=== PATIENT | female | born 1970 | race Caucasian/White ===

== ENCOUNTER 2017-12-08 07:07 | Emergency (ER) | payer SELFPAY ==
[2017-12-08] MEDS ORDERED: NA CHLORIDE 0.9% 1,000 ML ONE (07:39)
[2017-12-08 07:48] LABS: Absolute Lymphocytes (CBC) 2.8 K/uL (0.7-4.9); Absolute Monocytes 1.1 K/uL (0.1-1.3); Absolute Neutrophil 11.5 K/uL (1.8-8.0); Basophils % 0.4 % (0-1.3); Hematocrit 39.7 % (36.0-45.0); Lymphocytes % 18.3 % (15.3-44.8); MCV 88.3 fL (80-100); MPV 8.2 fL (7.6-11.3); Monocytes % 6.8 % (3.3-12.3); RBC Red Blood Cell Count 4.49 M/uL (3.86-4.86)
[2017-12-08 07:50] LABS: Protime INR 1.1
[2017-12-08 08:15] LABS: ALT/SGPT 9 U/L (12-78); AST/SGOT 17 U/L (15-37); Albumin 3.6 g/dL (3.4-5.0); Alkaline Phosphatase 69 U/L (45-117); BUN Blood Urea Nitrogen 9 mg/dL (7-18); Bicarbonate 25 mmol/L (21-32); Bilirubin Direct 0.1 mg/dL (0-0.2); Bilirubin Total 0.5 mg/dL (0.2-1.0); Glucose Level 107 mg/dL (74-106); NT PRO-BNP 407 pg/mL (<125); Potassium 3.5 mmol/L (3.5-5.1); Protein, Total 7.2 g/dL (6.4-8.2); Sodium Level 141 mmol/L (136-145); Troponin (Emerg Dept Use Only) < 0.02 ng/mL (0.0-0.045)
--- NOTE | 2017-12-08 09:04 | RAD REPORT ---
EXAM DESCRIPTION: CT - Chest For Pe Angio - 12/08/2017 8:38 am CLINICAL HISTORY: Chest pain. recent surgery;Chest pain;Dyspnea COMPARISON: No comparisons TECHNIQUE: CT angiogram of the pulmonary arteries was performed with MIP. All CT scans are performed using dose optimization technique as appropriate and may include automated exposure control or mA/KV adjustment according to patient size. FINDINGS: No evidence of pulmonary thromboembolism. No acute aortic finding demonstrated. Linear subsegmental atelectasis is present in both lung bases. No focal pulmonary infiltrate seen. No significant pericardial or pleural fluid. No concerning bony finding. Air is present in both breasts compatible with recent intervention. Moderate axial hiatal hernia. IMPRESSION: No evidence of pulmonary thromboembolism. Linear subsegmental atelectasis in both lung bases. Pockets of air in both breasts compatible with recent intervention. Moderate axial hiatal hernia.
--- NOTE | 2017-12-08 09:04 | RAD REPORT ---
EXAM DESCRIPTION: RAD - Chest Single View - 12/08/2017 8:07 am CLINICAL HISTORY: DYSPNEA Chest pain. COMPARISON: No comparisons FINDINGS: Portable technique limits examination quality. The lungs are grossly clear. The heart is normal in size. No displaced fractures.Air projecting over the central chest is likely related to recent breast surgery. IMPRESSION: No acute intrathoracic process suspected.
--- NOTE | 2017-12-08 09:07 | ER ---
Nurse's Notes [facility] Name: Dottie Vidales Age: 47 yrs Sex: Female : 1970 Arrival Date: 12/08/2017 Time: 07:08 Bed 7 Private MD: Luis Alberto Powell B Diagnosis: Dehydration;Shortness of breath Presentation: 12/08 07:17 Presenting complaint: Patient states: had breast implants removed yesterday and a iw breast lift done, woke up this morning feeling very SOB, denies chest pain, also states she feels like her legs a re very cold. Transition of care: patient was not received from another setting of care. Onset of symptoms was December 08, 2017. Risk Assessment: Do you want to hurt yourself or someone else? Patient reports no desire to harm self or others. Initial Sepsis Screen: Does the patient meet any 2 criteria? No. Patient's initial sepsis screen is negative. Does the patient have a suspected source of infection? No. Patient's initial sepsis screen is negative. Care prior to arrival: None. 07:17 Method Of Arrival: Wheelchair iw 07:17 Acuity: RAHEEM 3 iw Triage Assessment: 07:40 General: Appears in no apparent distress. Respiratory: Reports shortness of breath tw2 Onset: The symptoms/episode began/occurred this morning, the patient has mild shortness of breath. 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 - Social history:: Smoking status: . - Ebola Screening: : Patient denies travel to an Ebola-affected area in the 21 days before illness onset. Screenin:19 Abuse screen: Denies threats or abuse. Nutritional screening: No deficits noted. tw2 Tuberculosis screening: No symptoms or risk factors identified. Fall Risk None identified. Assessment: 07:14 Reassessment: provider at bedside at this time. tw2 07:20 Cardiovascular: Rhythm is sinus rhythm. tw2 07:20 Respiratory: Airway is patent Respiratory effort is even, unlabored, Respiratory tw2 pattern is regular, symmetrical, Breath sounds are clear bilaterally. 07:39 Reassessment: pain from surgery yesterday. General: Appears in no apparent distress. tw2 Behavior is cooperative, appropriate for age, anxious. Pain: Complains of pain in right breast and left breast. Neuro: Level of Consciousness is awake, alert, obeys commands, Oriented to person, place, time, situation. Cardiovascular: Heart tones S1 S2 Capillary refill < 3 seconds Patient's skin is warm and dry. Respiratory: Airway is patent Respiratory effort is even, unlabored, Respiratory pattern is regular, symmetrical, Breath sounds are clear bilaterally. GI: No signs and/or symptoms were reported involving the gastrointestinal system. Abdomen is flat, Bowel sounds present X 4 quads. : No signs and/or symptoms were reported regarding the genitourinary system. EENT: No signs and/or symptoms were reported regarding the EENT system. Derm: No signs and/or symptoms reported regarding the dermatologic system. Musculoskeletal: Circulation, motion, and sensation intact. Range of motion: intact in all extremities. 08:14 Reassessment: Patient appears in no apparent distress at this time. No changes from tw2 previously documented assessment. Patient and/or family updated on plan of care and expected duration. Pain level reassessed. Patient is alert, oriented x 3, equal unlabored respirations, skin warm/dry/pink. 09:15 Reassessment: Patient appears in no apparent distress at this time. No changes from tw2 previously documented assessment. Patient and/or family updated on plan of care and expected duration. Pain level reassessed. Patient is alert, oriented x 3, equal unlabored respirations, skin warm/dry/pink. Vital Signs: 07:18 BP 116 / 74; Pulse 90; Resp 18; Temp 98.2; Pulse Ox 100% on R/A; Weight 73.94 kg; iw Height 5 ft. 6 in. (167.64 cm); 08:10 BP 119 / 74; Pulse 71; Resp 17; Pulse Ox 100% on R/A; tw2 08:13 BP 119 / 74; Pulse 71; Resp 18; Pulse Ox 100% on R/A; hj 09:15 BP 119 / 73; Pulse 85; Resp 17; Pulse Ox 99% on R/A; tw2 07:18 Body Mass Index 26.31 (73.94 kg, 167.64 cm) iw ED Course: 07:08 Patient arrived in ED. am2 07:08 Luis Alberto Powell MD is Private Physician. am2 07:13 Zhen Nobles MD is Attending Physician. kdr 07:13 awake overnight monitor on. Pulse ox on. NIBP on. tw2 07:16 Nu Muse RN is Primary Nurse. tw2 07:17 Cecil Montgomery PA is PHCP. tw2 07:18 Triage completed. iw 07:20 Placed in gown. Bed in low position. Adult w/ patient. tw2 07:20 Arm band placed on. tw2 07:30 No provider procedures requiring assistance completed. Inserted saline lock: 20 gauge tw2 in right antecubital area, using aseptic technique. Blood collected. 07:37 Zhen Nobles MD is Attending Physician. jr8 07:40 EKG done, by quality technician. reviewed by Cecil MEYERS. at1 08:05 X-ray completed. Portable x-ray completed in exam room. kw 08:06 XRAY Chest (1 view) In Process Unspecified. EDMS 08:25 CT completed. Patient tolerated procedure well. Patient moved to CT via stretcher. jg6 Patient moved back from CT. 08:38 CT Chest For PE Angio In Process Unspecified. EDMS 09:16 IV discontinued, intact, bleeding controlled, No redness/swelling at site. Pressure tw2 dressing applied. Administered Medications: 07:35 Drug: NS 0.9% 1000 ml Route: IV; Rate: 1000 ml; Site: right antecubital; tw2 08:45 Follow up: IV Status: Completed infusion; IV Intake: 1000ml tw2 Intake: 08:45 IV: 1000ml; Total: 1000ml. tw2 Outcome: 09:06 Discharge ordered by . jr8 09:15 Discharged to home via wheelchair, with significant other. tw2 09:15 Condition: stable 09:15 Discharge instructions given to patient, significant other, Instructed on discharge instructions, follow up and referral plans. Demonstrated understanding of instructions, follow-up care. 09:16 Patient left the ED. tw2 Signatures: Dispatcher [employer] EDMS Zhen Nobles MD MD kdr Elsy Busby RN RN Victorina Harris kw Cecil Montgomery PA PA jr8 Candida Gomes, sap bw bi developer EKG Tat1 Uriel Ashby RN RN hj Nu Muse RN RN tw2 Candida Arenas am2 Camelia Croft jg6 Corrections: (The following items were deleted from the chart) 07:33 07:18 BP 116 / 74; Pulse 90bpm; Resp 18bpm; Pulse Ox 100% RA; tw2 iw
--- NOTE | 2017-12-08 09:07 | EDPHYS ---
Physician Documentation [facility] Name: Dottie Vidales Age: 47 yrs Sex: Female : 1970 Arrival Date: 12/08/2017 Time: 07:08 Bed 7 Private MD: Luis Alberto Powell B ED Physician Zhen Nobles HPI: 12/08 07:37 This 47 yrs old Female presents to ER via Wheelchair with complaints of jr8 Shortness Of Breath. 07:37 The patient has shortness of breath at rest. Onset: The symptoms/episode began/occurred jr8 acutely, today. Duration: The symptoms are continuous. The patient's shortness of breath has no apparent modifying factors. Associated signs and symptoms: The patient has no apparent associated signs or symptoms. Severity of symptoms: At their worst the symptoms were moderate in the emergency department the symptoms are unchanged. The patient has not experienced similar symptoms in the past. The patient has been recently seen by a physician:. Patient had breast augmentation surgery yesterday. Had felt fine throughout the night. This morning started to feel short of breath . 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 - Social history:: Smoking status: . - Ebola Screening: : Patient denies travel to an Ebola-affected area in the 21 days before illness onset. ROS: 07:37 Eyes: Negative for injury, pain, redness, and discharge, ENT: Negative for injury, jr8 pain, and discharge, Neck: Negative for injury, pain, and swelling, Cardiovascular: Negative for chest pain, palpitations, and edema, Abdomen/GI: Negative for abdominal pain, nausea, vomiting, diarrhea, and constipation, Back: Negative for injury and pain, MS/Extremity: Negative for injury and deformity, Skin: Negative for injury, rash, and discoloration, Neuro: Negative for headache, weakness, numbness, tingling, and seizure. 07:37 Respiratory: Positive for shortness of breath, Negative for cough, dyspnea on exertion, orthopnea, sputum production. Exam: 07:37 Eyes: Pupils equal round and reactive to light, extra-ocular motions intact. Lids and jr8 lashes normal. Conjunctiva and sclera are non-icteric and not injected. Cornea within normal limits. Periorbital areas with no swelling, redness, or edema. ENT: Nares patent. No nasal discharge, no septal abnormalities noted. Tympanic membranes are normal and external auditory canals are clear. Oropharynx with no redness, swelling, or masses, exudates, or evidence of obstruction, uvula midline. Mucous membranes moist. Neck: Trachea midline, no thyromegaly or masses palpated, and no cervical lymphadenopathy. Supple, full range of motion without nuchal rigidity, or vertebral point tenderness. No Meningismus. Respiratory: Lungs have equal breath sounds bilaterally, clear to auscultation and percussion. No rales, rhonchi or wheezes noted. No increased work of breathing, no retractions or nasal flaring. Abdomen/GI: Soft, non-tender, with normal bowel sounds. No distension or tympany. No guarding or rebound. No evidence of tenderness throughout. Back: No spinal tenderness. No costovertebral tenderness. Full range of motion. Skin: Warm, dry with normal turgor. Normal color with no rashes, no lesions, and no evidence of cellulitis. MS/ Extremity: Pulses equal, no cyanosis. Neurovascular intact. Full, normal range of motion. Neuro: Awake and alert, GCS 15, oriented to person, place, time, and situation. Cranial nerves II-XII grossly intact. Motor strength 5/5 in all extremities. Sensory grossly intact. Cerebellar exam normal. Normal gait. 07:37 Chest/axilla: Patient with recent breast augmentation. Mild ecchymosis resent. No dehiscence of incision lines. Patient wrapped with cindi bandage but able to take full breath without any problem . 07:37 Cardiovascular: Rate: tachycardic, Rhythm: regular, Pulses: Pulses are 2+ in right radial artery and left radial artery. Heart sounds: normal, normal S1and S2, no S3 or S4, no murmur, no rub, no gallop, Edema: is not appreciated. 08:09 ECG was reviewed by the Attending Physician. [facility] Vital Signs: 07:18 BP 116 / 74; Pulse 90; Resp 18; Temp 98.2; Pulse Ox 100% on R/A; Weight 73.94 kg; iw Height 5 ft. 6 in. (167.64 cm); 08:10 BP 119 / 74; Pulse 71; Resp 17; Pulse Ox 100% on R/A; tw2 08:13 BP 119 / 74; Pulse 71; Resp 18; Pulse Ox 100% on R/A; hj 09:15 BP 119 / 73; Pulse 85; Resp 17; Pulse Ox 99% on R/A; tw2 07:18 Body Mass Index 26.31 (73.94 kg, 167.64 cm) iw MDM: 07:27 Patient medically screened. 09:05 Data reviewed: vital signs, nurses notes, lab test result(s), EKG, radiologic studies, CT scan, plain films, and as a result, I will discharge patient. Data interpreted: Pulse oximetry: on room air is 100 %. Interpretation: normal. Counseling: I had a detailed discussion with the patient and/or guardian regarding: the historical points, exam findings, and any diagnostic results supporting the discharge/admit diagnosis, lab results, radiology results, the need for outpatient follow up, a plastic surgeon, to return to the emergency department if symptoms worsen or persist or if there are any questions or concerns that arise at home. 12/08 07:28 Order name: Basic Metabolic Panel; Complete Time: 08:12/08 07:28 Order name: CBC with Diff; Complete Time: 07:54 12/08 07:28 Order name: LFT's; Complete Time: 08:12/08 07:28 Order name: Magnesium; Complete Time: 08:12/08 07:28 Order name: NT PRO-BNP; Complete Time: 08:12/08 07:28 Order name: PT-INR; Complete Time: 07:54 12/08 07:28 Order name: Troponin (emerg Dept Use Only); Complete Time: 08:12/08 07:28 Order name: XRAY Chest (1 view); Complete Time: 09:05 12/08 07:28 Order name: EKG; Complete Time: 07:28 12/08 07:28 Order name: Cardiac monitoring; Complete Time: 07:12/08 07:28 Order name: EKG - Nurse/Tech; Complete Time: 07:38 12/08 07:28 Order name: IV Saline Lock; Complete Time: 07:31 12/08 07:28 Order name: CT Chest For PE Angio; Complete Time: 09:05 12/08 07:28 Order name: Labs collected and sent; Complete Time: 07:12/08 07:28 Order name: O2 Per Protocol; Complete Time: 07:12/08 07:28 Order name: O2 Sat Monitoring; Complete Time: 07:32 EC:09 Rate is 82 beats/min. Rhythm is regular, Normal Sinus Rhythm. QRS [place] is Normal. [place] jr8 interval is normal at 140 msec. QRS interval is normal at 84 msec. QT interval is normal at 420 msec. No Q waves. T waves are Normal. No ST changes noted. Clinical impression: Normal ECG. Interpreted by me. Reviewed by me. Administered Medications: 07:35 Drug: NS 0.9% 1000 ml Route: IV; Rate: 1000 ml; Site: right antecubital; tw2 08:45 Follow up: IV Status: Completed infusion; IV Intake: 1000ml tw2 Disposition: 10:34 Co-signature as Attending Physician, Zhen Nobles MD I agree with the assessment and kdr plan of care. Disposition: 12/08/17 09:06 Discharged to Home. Impression: Dehydration, Shortness of breath. - Condition is Stable. - Discharge Instructions: Dehydration, Adult, Shortness of Breath. - Medication Reconciliation Form, Thank You Letter, Antibiotic Education, Prescription Opioid Use form. - Follow up: Private Physician; When: Today; Reason: Recheck today's complaints, Continuance of care, Re-evaluation by your physician. - Problem is new. - Symptoms have improved. Signatures: Dispatcher [employer] EDMS Zhen Nobles MD MD [facility] Elsy Busby RN RN iw Roszak, Josh, PA PA jr8 Nu Muse RN RN tw2 Corrections: (The following items were deleted from the chart) 09:16 09:06 12/08/2017 09:06 Discharged to Home. Impression: Dehydration; Shortness of tw2 breath. Condition is Stable. Forms are Medication Reconciliation Form, Thank You Letter, Antibiotic Education, Prescription Opioid Use. Follow up: Private Physician; When: Today; Reason: Recheck today's complaints, Continuance of care, Re-evaluation by your physician. Problem is new. Symptoms have improved. jr8
--- NOTE | 2017-12-09 06:57 | EKG ---
Test Date: 2017-12-08 Test Time: 07:40:09 Designer Architect: [place] MEASUREMENT RESULTS: Intervals: Rate: 82 ME: 140 QRSD: 84 QT: 360 QTc: 420 [place]: P: 54 ME: 140 QRS: 34 T: 39 INTERPRETIVE STATEMENTS: Normal sinus rhythm Low voltage QRS Borderline ECG No previous ECG available for comparison Electronically Signed On 12-09-17 06:55:00 CDT by Faustino Prakash
== END 2017-12-08 09:16 | disposition home or self-care (01) ==
LOC: ER 07:07
DX: E86.0 Dehydration (principal); Z98.82 Breast implant status
CPT/HCPCS: 36415; 71045; 71275; 80048; 80076; 83735; 83880; 84484; 85025; 85610; 93005; 96360; 99285; J7030; Q9967

== ENCOUNTER 2022-08-17 10:14 | Emergency (ER) | payer BC ==
--- OUTSIDE RECORDS SUMMARY | 2022-08-17 10:19 | XMS REPORT | Continuity of Care Document ---
:1970 Author Organization [facility] t Address [address] [place] [address] [place] [id number] Care Team Providers Name Role Phone Darshan Guevara Attending Clinician Unavailable Green Gabriela LOPEZ Attending Clinician Pob1, Acute Care Clinic Attending Clinician Unavailable Lab, Adc Fam Pob I Attending Clinician Unavailable Richardson Pantoja Attending Clinician RICHARDSON TURNER Attending Clinician Unavailable Payers Payer Name Policy Type Policy Number Effective Date Expiration Date S priyank [employer] 6 [id number] 2021 Common Spiri t Blue Shield of 00:00:00 - Critical access hospital Medical [place] Problems Condition Condition Condition Status Onset Resolution Last Treating Co mments Source Name Details Category Date Date Treatment Clinician Date [id number] Mixed Problem Active Common hyperlipid Spirit emia - [facility] [id number] Amenorrhea Problem Active Com mon Spirit - [facility] [id number] Generalize Problem Active Com mon d anxiety Spirit disorder [facility] [id number] Current Problem Active Common mild Spirit episode of - [facility] major [facility] Center prior episode Allergies, Adverse Reactions, Alerts Allergy Allergy Status Severity Reaction(s) Onset Inactive Treating Comm ents Source Name Type Date Date Clinician NO KNOWN Drug Active [facility] Social History Social Habit Start Date Stop Date Quantity Comments Source Exposure to SARS-CoV-2 Yes Un [facility] (event) [facility] History of Tobacco Use Co mmon [facility] Sex Assigned At Com mon [facility] Smoking Status Start Date Stop Date Source Unknown if ever smoked [facility] Never Smoker Common [facility] Medications Ordered Filled Start Stop Current Ordering Indication Dosage Frequency Signature Comments Components Source Medication Medication Date Date Medication? Clinician (SIG) Name Name Phentermine Phentermine 2021- No 1{capsu QD Phentermin HCl 37.5 MG HCl 37.5 MG 6-20 07-20 le} e HCl 37.5 00:00: 00:00 MG 00 :00 Phentermine Phentermine 2021- No 1{capsu QD Phentermin HCl 37.5 MG HCl 37.5 MG 6-20 07-20 le} e HCl 37.5 00:00: 00:00 MG 00 :00 Phentermine Phentermine 2021- No 1{capsu QD Phentermin HCl 37.5 MG HCl 37.5 MG 6-20 07-20 le} e HCl 37.5 00:00: 00:00 MG 00 :00 Phentermine Phentermine 2021-0 No 1{capsu QD Phentermin HCl 30 MG HCl 30 MG 5-20 le} e HCl 30 00:00: MG 00 Nitrofurant Nitrofurant 2021- No 1{capsu BID Nitrofuran oin Monohyd oin Monohyd 07-15 le} toin Macro 100 Macro 100 00:00: 00:00 Monohyd MG MG 00 :00 Macro 100 MG Nitrofurant Nitrofurant 2021- No 1{capsu BID Nitrofuran oin Monohyd oin Monohyd 07-15- le} toin Macro 100 Macro 100 00:00: 00:00 Monohyd MG MG 00 :00 Macro 100 MG Nitrofurant Nitrofurant 2022-0 2022- No 1{capsu BID Nitrofuran oin Monohyd oin Monohyd 427 0502 le} toin Macro 100 Macro 100 00:00: 00:00 Monohyd MG MG 00 :00 Macro 100 MG Phentermine Phentermine 2020-0 No 1{capsu QD Phentermin HCl 30 MG HCl 30 MG 11-20 le} e HCl 30 00:00: MG 00 Phentermine Phentermine 2020-0 No 1{capsu QD Phentermin HCl 30 MG HCl 30 MG 11-20 le} e HCl 30 00:00: MG 00 Phentermine Phentermine 2020-0 No 1{capsu QD Phentermin HCl 30 MG HCl 30 MG 11-20 le} e HCl 30 00:00: MG 00 Phentermine Phentermine 2020-0 No 1{capsu QD Phentermin HCl 30 MG HCl 30 MG 11-20 le} e HCl 30 00:00: MG 00 Phentermine Phentermine 2020-0 No 1{capsu QD Phentermin HCl 30 MG HCl 30 MG 11-20 le} e HCl 30 00:00: MG 00 Phentermine Phentermine 2020-0 No 1{capsu QD Phentermin HCl 30 MG HCl 30 MG 11-20 le} e HCl 30 00:00: MG 00 Phentermine Phentermine 2020-0 1- No 1{capsu QD Phentermin HCl 15 MG HCl 15 MG 10-2405 le} e HCl 15 00:00: 00:00 MG 00 :00 Naproxen Naproxen Yes Darshan 1 tablet C ommon Guevara with food Spirit or milk as - [facility] needed [facility] Lexapro Lexapro Yes Darshan 1 tablet Com mon Guevara Spirit - [facility] Lexapro 10 Lexapro 10 No 1{table QD Lexapro 10 MG MG t} MG Naproxen Naproxen No QD Naproxen 500 MG 500 MG 500 MG Escitalopra Escitalopra No Escitalopr m Oxalate m Oxalate am Oxalate 10 MG 10 MG 10 MG Lexapro 10 Lexapro 10 No 1{table QD Lexapro 10 MG MG t} MG Naproxen Naproxen No QD Naproxen 500 MG 500 MG 500 MG Escitalopra Escitalopra No Escitalopr m Oxalate m Oxalate am Oxalate 10 MG 10 MG 10 MG Lexapro 10 Lexapro 10 No 1{table QD Lexapro 10 MG MG t} MG Naproxen Naproxen No QD Naproxen 500 MG 500 MG 500 MG Escitalopra Escitalopra No Escitalopr m Oxalate m Oxalate am Oxalate 10 MG 10 MG 10 MG Naproxen Naproxen No QD Naproxen 500 MG 500 MG 500 MG Lexapro 10 Lexapro 10 No 1{table QD Lexapro 10 MG MG t} MG Lexapro 10 Lexapro 10 No 1{table QD Lexapro 10 MG MG t} MG Naproxen Naproxen No QD Naproxen 500 MG 500 MG 500 MG Escitalopra Escitalopra No Escitalopr m Oxalate m Oxalate am Oxalate 10 MG 10 MG 10 MG Lexapro 10 Lexapro 10 No 1{table QD Lexapro 10 MG MG t} MG Lexapro 10 Lexapro 10 No 1{table QD Lexapro 10 MG MG t} MG Naproxen Naproxen No QD Naproxen 500 MG 500 MG 500 MG Escitalopra Escitalopra No Escitalopr m Oxalate m Oxalate am Oxalate 10 MG 10 MG 10 MG Lexapro 10 Lexapro 10 No 1{table QD Lexapro 10 MG MG t} MG Lexapro 10 Lexapro 10 No 1{table QD Lexapro 10 MG MG t} MG Naproxen Naproxen No QD Naproxen 500 MG 500 MG 500 MG Escitalopra Escitalopra No Escitalopr m Oxalate m Oxalate am Oxalate 10 MG 10 MG 10 MG Lexapro 10 Lexapro 10 No 1{table QD Lexapro 10 MG MG t} MG Lexapro 10 Lexapro 10 No 1{table QD Lexapro 10 MG MG t} MG Lexapro 10 Lexapro 10 No 1{table QD Lexapro 10 MG MG t} MG Naproxen Naproxen No QD Naproxen 500 MG 500 MG 500 MG Lexapro 10 Lexapro 10 No 1{table QD Lexapro 10 MG MG t} MG Naproxen Naproxen No QD Naproxen 500 MG 500 MG 500 MG Lexapro 10 Lexapro 10 No 1{table QD Lexapro 10 MG MG t} MG Naproxen Naproxen No QD Naproxen 500 MG 500 MG 500 MG Lexapro 10 Lexapro 10 No 1{table QD Lexapro 10 MG MG t} MG Naproxen Naproxen No QD Naproxen 500 MG 500 MG 500 MG Escitalopra Escitalopra No Escitalopr m Oxalate m Oxalate am Oxalate 10 MG 10 MG 10 MG Phentermine Phentermine Darshan 1 capsule Common HCl HCl 08 Guevara Spirit 00:00 - [facility] :00 [facility] Vital Signs Vital Name Observation Time Observation Value Comments Source height 2021-09-07 08:20:00 66 [in_i] [facility] weight 2021-09-07 08:20:00 157 [lb_av] [facility] temperature 2021-09-07 08:20:00 98 [degF] [facility] bmi 2021-09-07 08:20:00 25.34 kg/m2 [facility] height 2021-08-07 08:10:00 66 [in_i] [facility] weight 2021-08-07 08:10:00 161.4 [lb_av] [facility] temperature 2021-08-07 08:10:00 97.9 [degF] [facility] bmi 2021-08-07 08:10:00 26.05 kg/m2 [facility] oximetry 2021-08-07 08:10:00 100 % [facility] respiratory rate 2021-08-07 08:10:00 17 /min Comm on [facility] blood pressure 2021-08-07 08:10:00 114 mm[Hg] [facility] - systolic [facility] blood pressure 2021-08-07 08:10:00 68 mm[Hg] [facility] diastolic [facility] height 2021-07-15 10:10:00 66 [in_i] [facility] weight 2021-07-15 10:10:00 161.9 [lb_av] Common Spirit - [facility] temperature 2021-07-15 10:10:00 97.3 [degF] Common S pirit [facility] bmi 2021-07-15 10:10:00 26.13 kg/m2 Common S pirit [facility] oximetry 2021-07-15 10:10:00 98 % Common S pirit [facility] respiratory rate 2021-07-15 10:10:00 17 /min Comm on [facility] blood pressure 2021-07-15 10:10:00 130 mm[Hg] Common Spirit - systolic [facility] blood pressure 2021-07-15 10:10:00 82 mm[Hg] Common Spirit - diastolic [facility] height 2021-01-15 09:50:00 66 [in_i] Common [facility] weight 2021-01-15 09:50:00 153.0 [lb_av] Common [facility] temperature 2021-01-15 09:50:00 97.0 [degF] Common S pirit [facility] bmi 2021-01-15 09:50:00 24.69 kg/m2 [facility] oximetry 2021-01-15 09:50:00 92 % [facility] 2021-01-15 09:50:00 18 /min Comm on [facility] blood pressure 2021-01-15 09:50:00 133 mm[Hg] Common Spirit - systolic [facility] blood pressure 2021-01-15 09:50:00 76 mm[Hg] Common Spirit - diastolic [facility] height 2020-11-20 13:00:00 66 [in_i] Common S pirit [facility] weight 2020-11-20 13:00:00 143 [lb_av] Common S pirit [facility] temperature 2020-11-20 13:00:00 98 [degF] Common S pirit [facility] bmi 2020-11-20 13:00:00 23.08 kg/m2 Common [facility] height 2020-10-24 10:30:00 66 [in_i] [facility] weight 2020-10-24 10:30:00 147.6 [lb_av] [facility] temperature 2020-10-24 10:30:00 97.4 [degF] [facility] bmi 2020-10-24 10:30:00 23.82 kg/m2 [facility] oximetry 2020-10-24 10:30:00 96 % [facility] respiratory rate 2020-10-24 10:30:00 18 /min Comm on [facility] blood pressure 2020-10-24 10:30:00 120 mm[Hg] [facility] systolic [facility] blood pressure 2020-10-24 10:30:00 84 mm[Hg] [facility] diastolic [facility] Procedures This patient has no known procedures. Encounters Start End Encounter Admission Attending Care Care Encounter Source Date/Time Date/Time Type Type Clinicians Facility Department ID 2022-06-18 Outpatient Guevara, [facility] [id number] Common 10:26:00 Darshan 36725 [facility] 2021-08-06 [facility] [id number] Common 10:11:02 Darshan [facility] 2021-08-05 Outpatient Guevara, [facility] [id number] Common 10:03:13 Darshan [facility] 2021-07-15 [facility], [facility] [id number] Common 09:55:01 Darshan [facility] 2021-04-15 Outpatient [facility]uevar[facility], [facility] [id number] Common 13:34:57 Darshan [facility] 2021-04-15 Outpatient [facility]uevar[facility], [facility] [id number] Common 13:05:52 Darshan 69222 [facility] 2021-04-15 Outpatient Guevara, STLMLC ST[facility] [id number] Common 12:44:18 Darshan 94091 [facility] 2021-04-15 Outpatient Guevara, STLMLC STLMLC [id number] Common 12:41:47 Darshan 91243 [facility] 2021-04-15 Outpatient Guevara, STLMLC STLMLC [id number] Common 12:34:22 Darshan 27659 [facility] 2021-04-15 Outpatient Guevara, STLMLC STL[facility]C [id number] Common 12:34:01 Darshan 13722 [facility] 2021-04-15 Outpatient Guevara, STLMLC STLMLC [id number] Common 12:30:55 Darshan 79650 [facility] 2021-04-15 Outpatient Guevara, STLMLC STLMLC [id number] Common 12:24:15 Darshan 72369 [facility] 2021-04-15 Outpatient Guevara, STLMLC STLMLC [id number] Common 11:53:50 Darshan 79009 [facility] 2021-04-15 Outpatient Guevara, STLMLC STL[facility]C [id number] Common 11:44:41 Darshan 73462 [facility] 2021-04-15 Outpatient Guevara, STLMLC STLMLC [id number] Common 11:17:40 Darshan 48249 [facility] 2021-04-15 Outpatient Guevara, STLMLC STLMLC [id number] Common 11:09:22 Darshan 05058 [facility] 2021-09-14 2021-09-14 (TEL) STLMLC STLMLC [id number] Co mmon 00:00:00 00:00:00 [facility] 2021-09-09 2021-09-09 (TEL) STLMLC STLMLC [id number] Co mmon 00:00:00 00:00:00 [facility] 2021-09-07 2021-09-07 OFFICE STLMLC STLMLC [id number] Co mmon 00:00:00 00:00:00 VISIT EST Spir it PT LEVEL 3 [facility] 2021-08-07 2021-08-07 (WELLNESS) STLMLC STLMLC [id number] Common 00:00:00 00:00:00 Wellness Spiri t [facility] 2021-07-20 2021-07-20 (TEL) STLMLC STLMLC [id number] Co mmon 00:00:00 00:00:00 [facility] 2021-07-15 2021-07-15 OFFICE STLMLC STLMLC [id number] Co mmon 00:00:00 00:00:00 VISIT EST Spir it PT LEVEL 3 [facility] 2021-07-14 2021-07-14 (TEL) STLMLC STLMLC [id number] Co mmon 00:00:00 00:00:00 [facility] 2021-01-15 2021-01-15 OFFICE STLMLC STLMLC [id number] Co mmon 00:00:00 00:00:00 VISIT [facility] PT [facility] LEVEL 4 [facility] 2021-01-15 2021-01-15 (TEL) STLMLC STLMLC [id number] Co mmon 00:00:00 00:00:00 [facility] 2020-11-20 2020-11-20 OFFICE STLMLC STLMLC [id number] Co mmon 00:00:00 00:00:00 VISIT EST Spir it PT LEVEL 3 [facility] 2020-10-24 2020-10-24 OFFICE STLMLC STLMLC [id number] Co mmon 00:00:00 00:00:00 VISIT EST Spir it PT LEVEL 3 [facility] 2020-06-26 2020-06-26 Outpatient STLMLC STLMLC [id number] Common 00:00:00 00:00:00 [facility] 2020-05-21 2020-05-21 Outpatient STLMLC STLMLC [id number] Common 00:00:00 00:00:00 [facility] 2020-04-222020-04-22 Outpatient STLMLC STLMLC [id number] Common 00:00:00 00:00:00 [facility] 2020-04-14 2020-04-14 Outpatient STLMLC STLMLC [id number] Common 00:00:00 00:00:00 [facility] 2020-01-25 2020-01-25 Outpatient STLMLC STLMLC [id number] Common 00:00:00 00:00:00 [facility] 2019-12-31 2019-12-31 Outpatient STLMLC STLMLC [id number] Common 00:00:00 00:00:00 [facility] 2019-12-03 2019-12-03 [facility] [id number] Common 14:57:00 14:57:[address] [facility] [address] [facility] 2019-11-30 2019-11-30 [facility] [id number] Common 09:30:00 09:30:00 [address] Spir [address] Drive [facility] 2019-10-29 2019-10-29 [facility] [id number] Common 14:45:00 14:45:00 t [employer] Sp[address] [facility] 2019-10-17 2019-10-17 Telephone ADELA Hernandez [id number] Univers 00:00:00 00:00:00 Gabriela SOLO [id number] it y [facility] [id number] Sammy as [phone] [address] 2019-10-17 2019-10-17 Telephone Pob1, Acute [facility] [id number] [facility] 00:00:00 00:00:00 Care [facility] Health [id number] ity of [place] [id number] Sammy as Juan [phone] [facility] [address] [facility] One 2019-10-17 2019-10-17 Telephone Pob1, Acute [facility] [id number] 00:00:00 00:00:00 Care Clinic Health [id number] [place] [id number] Professio [phone] nal [address] 2019-10-17 2019-10-17 ADELA Mantilla [id number] 00:00:00 00:00:00 Gabriela SOLO [id number] [facility] [id number] [id number] 2019-10-16 2019-10-16 Laboratory Lab, [facility] Pob I [facility] [id number] [facility] 08:14:49 08:23:40 Only Richardson Turner [id number] ity [facility] [id number] Sammy as Professio [phone] [place] [address] [address] 2019-10-16 2019-10-16 Laboratory Lab, [facility] [id number] 08:14:49 08:23:40 Only Fam Leroy [facility] [id number] [place] [phone] [facility] Office Building One 2019-10-16 2019-10-16 Outpatient R YUE [facility] [id number] Univers 08:20:00 08:20:00 RICHARDSON itkana of [facility] 2019-10-01 2019-10-01 [facility] [id number] Common 11:15:00 11:15:[address] [address] [facility] 2019-09-27 2019-09-27 [facility] [id number] Common 11:15:00 11:15:[address] [facility] 2019-09-04 2019-09-04 [facility] [id number] Common 16:00:00 16:00:[address] [address] [facility] 2019-07-26 2019-07-26 [facility] [id number] Common 08:06:00 08:06:[address] [facility] 2019-06-21 2019-06-21 [facility] [id number] Common 11:28:00 11:28:00 t [employer] [address] [facility] 2019-05-15 2019-05-15 [facility] [id number] Common 10:15:00 10:15:00 t [employer] Sp[address] [facility] Results Test Description Test Time Test Comments Results Result Comments Source CT Abdomen Pelvis Wo CT Abdomen Pelvis Contrast Wo Contrast
--- NOTE | 2022-08-17 11:49 | RAD REPORT ---
EXAM DESCRIPTION: CT - Abdomen Pelvis Wo Contrast - 08/17/2022 11:03 am CLINICAL HISTORY: ABD PAIN COMPARISON: Abdomen Pelvis Wo Contrast dated 01/15/2021 TECHNIQUE: Thin cut axial CT imaging of the abdomen and pelvis was performed without IV contrast. Mu ltiplanar reformats were generated and reviewed. All CT scans are performed using dose optimization technique as appropriate and may include automated exposure control or mA/KV adjustment according to patient size. FINDINGS: No suspicious findings in the lung bases. Small hiatal hernia is noted. The liver, spleen, and pancreas show no suspicious findings. Gallbladder and biliary tree are also wi thout suspicious finding. Symmetric renal contour, without suspicious parenchymal findings within limits of noncontrast techniq ue. No evidence of radiopaque calculi or hydroureteronephrosis. No dilated bowel loops or bowel wall thickening. No free air, free fluid or inflammatory stranding. N o hernia, mass or bulky lymphadenopathy. The urinary bladder is without significant finding. No suspicious bony findings. IMPRESSION: No acute intra-abdominal process.
[2022-08-17] MEDS ORDERED: ONDANSETRON 4 MG/2 ML VIAL ONE (11:50)
[2022-08-17] MEDS ORDERED: KETOROLAC 30 MG/ML INJ ONE (11:51)
[2022-08-17] MEDS ORDERED: NA CHLORIDE 0.9% 1,000 ML ONE (11:51)
[2022-08-17 12:03] LABS: Absolute Lymphocytes (CBC) 1.9 K/uL (0.7-4.9); Hematocrit 41.2 % (36.0-45.0); Lymphocytes % 37.2 % (15.3-44.8); MCV 88.6 fL (80-100); MPV 7.7 fL (7.6-11.3); RBC Red Blood Cell Count 4.64 M/uL (3.86-4.86)
[2022-08-17 12:04] LABS: Urine Bilirubin NEGATIVE (Negative); Urine Blood Negative (Negative); Urine Clarity Clear (Clear); Urine Color Colorless (Yellow); Urine Glucose NEGATIVE (Negative); Urine Protein NEGATIVE (Negative); Urine Urobilinogen Normal (Normal); Urine pH 5.5 (5.0-7.0)
[2022-08-17 12:20] LABS: Albumin 4.1 g/dL (3.4-5.0); Bilirubin Total 0.4 mg/dL (0.2-1.0); Potassium 3.6 mEq/L (3.5-5.1)
--- NOTE | 2022-08-17 13:16 | EDPHYS ---
Physician Documentation [facility] Name: Dottie Vidales Age: 52 yrs Sex: Female : 1970 Arrival Date: 08/17/2022 Time: 10:14 Bed 15 Private MD: Darshan Guevara ED Physician Fletcher Will HPI: 08/17 13:22 This 52 yrs old Female presents to ER via Ambulatory with complaints of Abdominal Pain. kb 13:22 The patient presents with abdominal pain in the right upper quadrant, right lower kb quadrant. 15:44 Onset: The symptoms/episode began/occurred 1 week(s) ago. The symptoms do not radiate. kb Associated signs and symptoms: Pertinent positives: nausea, Pertinent negatives: diarrhea, fever, vomiting. The symptoms are described as constant. Modifying factors: The symptoms are alleviated by nothing, the symptoms are aggravated by nothing. Severity of pain: At its worst the pain was moderate in the emergency department the pain is unchanged. The patient has not experienced similar symptoms in the past. The patient has not recently seen a physician. Historical: - Allergies: 10:52 NKA; hb - PSHx: 10:52 Tubal Ligation; Breast Augmentation; Breast Implant Removal; hb - Immunization history:: Adult Immunizations up to date, Client reports receiving the 2nd dose of the Covid vaccine. - Social history:: Smoking status: Patient denies any tobacco usage or history of. Patient/guardian denies using alcohol. ROS: 15:45 Constitutional: Negative for fever, chills, and weight loss. kb 15:45 Abdomen/GI: Positive for abdominal pain, nausea, Negative for vomiting, diarrhea, constipation. 15:45 All other systems are negative. Exam: 15:45 Constitutional: This is a well developed, well nourished patient who is awake, alert, kb and in no acute distress. Head/Face: Normocephalic, atraumatic. ENT: Moist Mucous membranes Cardiovascular: Regular rate and rhythm with a normal S1 and S2. No gallops, murmurs, or rubs. No pulse deficits. Respiratory: Respirations even and unlabored. No increased work of breathing. Talking in full sentences Skin: Warm, dry with normal turgor. Normal color. MS/ Extremity: Pulses equal, no cyanosis. Neurovascular intact. Full, normal range of motion. Neuro: Awake and alert, GCS 15, oriented to person, place, time, and situation. Moves all extremities. Normal gait. 15:45 Abdomen/GI: Inspection: abdomen appears normal, Bowel sounds: normal, Palpation: soft, in all quadrants, mild abdominal tenderness, in the right lower quadrant. Vital Signs: 10:51 BP 150 / 93; Pulse 83; Resp 16; Temp 98.9(TE); Pulse Ox 100% on R/A; Weight 76.2 kg; hb Height 5 ft. 6 in. ; Pain 9/10; 11:55 BP 125 / 77; Pulse 86; Resp 18; Pulse Ox 100% on R/A; Pain 9/10; ld1 13:01 BP 121 / 78; Pulse 77; Resp 18; Pulse Ox 100% on R/A; ld1 10:51 Body Mass Index 27.12 (76.20 kg, 167.64 cm) hb 10:51 Pain Scale: Adult hb 11:55 Pain Scale: Adult ld1 MDM: 10:35 Patient medically screened. 12:11 Data reviewed: vital signs, nurses notes. Discussion of test interpretation with kb radiology: I had a discussion with radiology regarding a test interpretation. Discussed ct with Dr Webb who reports appendix is seen and normal. 15:46 Differential diagnosis: appendicitis, diverticulitis, gastritis, non-specific abd pain, kb Pyelonephritis, urinary tract infection. Counseling: I had a detailed discussion with the patient and/or guardian regarding: the historical points, exam findings, and any diagnostic results supporting the discharge/admit diagnosis, lab results, radiology results, the need for outpatient follow up, a family practitioner, to return to the emergency department if symptoms worsen or persist or if there are any questions or concerns that arise at home. 08/17 10:52 Order name: CBC with Diff; Complete Time: 12:11 kb 08/17 10:52 Order name: CMP; Complete Time: 12:29 kb 08/17 10:52 Order name: Lipase; Complete Time: 12:29 kb 08/17 10:52 Order name: Urinalysis w/ reflexes; Complete Time: 12:11 kb 08/17 10:52 Order name: CT Abd/Pelvis - Without Contrast; Complete Time: 11:50 kb 08/17 10:52 Order name: IV Saline Lock; Complete Time: 11:54 kb 08/17 10:52 Order name: Labs collected and sent; Complete Time: 11:54 kb Administered Medications: 11:53 Drug: NS 0.9% IV 1000 ml Route: IV; Rate: 1 bolus; Site: right antecubital; ld1 11:54 Drug: TORadol - Ketorolac IVP 15 mg Route: IVP; Site: right antecubital; ld1 11:54 Drug: Ondansetron IVP 4 mg Route: IVP; Site: right antecubital; ld1 Disposition: 17:07 Co-signature as Attending Physician, Fletcher Will MD I reviewed the patient's care rn provided by the Advanced Practice Provider and agree with the diagnosis and treatment plan. Disposition Summary: 08/17/22 13:15 Discharge Ordered Location: Home kb Condition: Stable kb Diagnosis - Lower abdominal pain, unspecified kb Followup: kb - With: Emergency Department - When: As needed - Reason: Worsening of condition Followup: kb - With: Private Physician - When: 2 - 3 days - Reason: Recheck today's complaints, Continuance of care, Re-evaluation by your physician Discharge Instructions: - Discharge Summary Sheet kb - Abdominal Pain, Adult, [id number] kb Forms: - Medication Reconciliation Form kb - Thank You Letter kb - Antibiotic Education kb - Prescription Opioid Use kb Prescriptions: - Diclofenac Sodium 75 mg Oral tablet,delayed release (DR/EC) - take 1 tablet by ORAL route 2 times per day As needed; 30 tablet; Refills: 0, kb Product Selection Permitted Signatures: Dispatcher [employer] Rosanne Cheema, JOHN-Phong CUMMINSP-Fletcher Garcia MD MD rn Baxter, Heather, RN RN Hannah Stuart RN RN ld1
--- NOTE | 2022-08-17 13:16 | ER ---
Nurse's Notes [facility] Name: Dottie Vidales Age: 52 yrs Sex: Female : 1970 Arrival Date: 08/17/2022 Time: 10:14 Bed 15 Private MD: Darshan Guevara Diagnosis: Lower abdominal pain, unspecified Presentation: 08/17 10:49 Chief complaint: Right sided abdominal pain and nausea x 1 week, became worse yesterday.hb 10:51 Coronavirus screen: At this time, the client does not indicate any symptoms associated hb with coronavirus-19. Ebola Screen: No symptoms or risks identified at this time. Initial Sepsis Screen: Does the patient meet any 2 criteria? No. Patient's initial sepsis screen is negative. Does the patient have a suspected source of infection? No. Patient's initial sepsis screen is negative. Risk Assessment: Do you want to hurt yourself or someone else? Patient reports no desire to harm self or others. Onset of symptoms was August 16, 2022. 10:51 Method Of Arrival: Ambulatory hb 10:51 Acuity: RAHEEM 3 hb Historical: - Allergies: 10:52 NKA; hb - PSHx: 10:52 Tubal Ligation; Breast Augmentation; Breast Implant Removal; hb - Immunization history:: Adult Immunizations up to date, Client reports receiving the 2nd dose of the Covid vaccine. - Social history:: Smoking status: Patient denies any tobacco usage or history of. Patient/guardian denies using alcohol. Screenin:55 [facility] ED Fall Risk Assessment (Adult) History of falling in the last 3 months, ld1 including since admission No falls in past 3 months (0 pts). Abuse screen: Denies threats or abuse. Denies injuries from another. Nutritional screening: No deficits noted. Tuberculosis screening: No symptoms or risk factors identified. Assessment: 11:54 General: Appears in no apparent distress. comfortable, Behavior is calm, cooperative, ld1 appropriate for age. Pain: Complains of pain in abdomen Pain does not radiate. Pain currently is 9 out of 10 on a pain scale. Quality of pain is described as throbbing, Pain began 1 day ago. Is intermittent. Neuro: Level of Consciousness is awake, alert, obeys commands, Oriented to person, place, time, situation. Cardiovascular: Capillary refill < 3 seconds Patient's skin is warm and dry. Respiratory: Airway is patent Respiratory effort is even, unlabored. GI: Abdomen is flat, non-distended, Bowel sounds present X 4 quads. Abd is soft Abdomen is tender to palpation. : No signs and/or symptoms were reported regarding the genitourinary system. EENT: No signs and/or symptoms were reported regarding the EENT system. Derm: No signs and/or symptoms reported regarding the dermatologic system. Musculoskeletal: No signs and/or symptoms reported regarding the musculoskeletal system. Vital Signs: 10:51 BP 150 / 93; Pulse 83; Resp 16; Temp 98.9(TE); Pulse Ox 100% on R/A; Weight 76.2 kg; hb Height 5 ft. 6 in. ; Pain 9/10; 11:55 BP 125 / 77; Pulse 86; Resp 18; Pulse Ox 100% on R/A; Pain 9/10; ld1 13:01 BP 121 / 78; Pulse 77; Resp 18; Pulse Ox 100% on R/A; ld1 10:51 Body Mass Index 27.12 (76.20 kg, 167.64 cm) hb 10:51 Pain Scale: Adult hb 11:55 Pain Scale: Adult ld1 ED Course: 10:16 Patient arrived in ED. am2 10:16 Darshan Guevara DO is Private Physician. am2 10:22 Rosanne Castelan FNP-C is [facility]. kb 10:22 Fletcher Will MD is Attending Physician. kb 10:52 Triage completed. hb 10:54 Arm band placed on. hb 11:05 CT Abd/Pelvis - Without Contrast In Process Unspecified. EDMS 11:39 Hannah Stuart, ELENA is Primary Nurse. ld1 11:54 Urinalysis w/ reflexes Sent. ld1 11:54 Lipase Sent. ld1 11:54 CMP Sent. ld1 11:54 CBC with Diff Sent. ld1 11:55 Patient has correct armband on for positive identification. Placed in gown. Bed in low ld1 position. Call light in reach. Side rails up X2. cardiac monitor on. Pulse ox on. NIBP on. Door closed. Noise minimized. Warm blanket given. 11:55 No provider procedures requiring assistance completed. Inserted saline lock: 20 gauge ld1 in right antecubital area, using aseptic technique. Blood collected. 13:23 IV discontinued, intact, bleeding controlled, No redness/swelling at site. ld1 Administered Medications: 11:53 Drug: NS 0.9% IV 1000 ml Route: IV; Rate: 1 bolus; Site: right antecubital; ld1 11:54 Drug: TORadol - Ketorolac IVP 15 mg Route: IVP; Site: right antecubital; ld1 11:54 Drug: Ondansetron IVP 4 mg Route: IVP; Site: right antecubital; ld1 Medication: 11:55 VIS not applicable for this client. ld1 Outcome: 13:15 Discharge ordered by . trace 13:22 Discharged to home ambulatory. ld1 13:22 Condition: stable 13:22 Discharge instructions given to patient, family, Instructed on discharge instructions, follow up and referral plans. Demonstrated understanding of instructions, follow-up care, medications, Prescriptions given X 1. 13:23 Patient left the ED. ld1 Signatures: Dispatcher [employer] EDMS Rosanne Castelan, DROP COUNT ASSOCIATE-C DROP COUNT ASSOCIATE-Kayley Mata, RN RN Candida Arenas amHannah Murry RN RN ld1 Corrections: (The following items were deleted from the chart) 10:52 10:49 Chief complaint: Right sided abdominal pain since last night hb hb
[2022-08-17 13:31] VITALS: TEMP 98.9; O2SAT 100
[2022-08-17 13:33] VITALS: BP 121/78
== END 2022-08-17 13:23 | disposition home or self-care (01) ==
LOC: ER 10:14
DX: R10.31 Right lower quadrant pain (principal); Z98.82 Breast implant status
CPT/HCPCS: 85025; 36415; 81003; 83690; 80053; 74176; 96375; 96374; 99285; J2405; J7030